=== PATIENT | female | born 1965 | race Caucasian/White ===

== ENCOUNTER → 2017-04-21 | Outpatient (CLI) | payer MEDICARE, MEDICAID ==
[~2017-04-21] MED LIST: ALBU17AE3 IH; ALPR1TAB2 PO; AMT50T PO; ARIP10TA2 PO; ASPI-587 PO; ATEN50TA PO; BSP10T PO; CALC-758 PO; CITA-105 PO; CITA40TA19 PO; CLAR-19 PO; CODE120S3 PO; CYCL10TA9 PO; HYDR-1435 PO; HYDR-2890 PO; HYDR-3816 PO; HYOS0.1216 PO; IBP600T1 PO; LEVO500T69 PO; METR500T PO; MS15TCR PO; NAPR500T PO; NF-ESOM40C PO; OMG1KC PO; POLY119P PO; POTA10TA36 PO; PRD20T PO; PRED10TA PO; PRED20TA PO; PRM25T PO; RANI150C11 PO; RT-ALBUINH IH; SIMV40TA2 PO; TRAZ150T42 PO; ZLP10T PO
[2017-04-24 22:38] LABS: DACLATASVIR RESISTANCE NOT PREDICTED; ELBASVIR RESISTANCE NOT PREDICTED; LEDIPASVIR RESISTANCE NOT PREDICTED; OMBITASVIR RESISTANCE NOT PREDICTED
[2017-04-26 07:29] LABS: VELPATASVIR RESISTANCE NOT PREDICTED
== END ==
LOC: LAB 14:53
PROVIDERS: ATTEND Pediatrics
DX: B18.2 Chronic viral hepatitis C (principal)
CPT/HCPCS: 36415; 87902

== ENCOUNTER 2021-01-31 12:05 | Emergency (ER) | payer MEDICARE, MEDICAID ==
[~2021-01-31] VITALS: Ht 160 cm; Wt 46.3 kg
[~2021-01-31 12:05] MED LIST changes: +HYDR-34 PO; -HYDR-3816 PO; +NAPR-1071 PO; -NAPR500T PO
[2021-01-31] MEDS ORDERED: KETOROLAC 30 MG/ML VIAL IM ONE (12:30)
[2021-01-31] MEDS ORDERED: ORPHENADRINE 60 MG/2 ML (NORFLEX) AMP (ED ONLY) IM ONE (12:30)
[2021-01-31] MEDS ORDERED: CYCL10TA9 PO (13:10)
--- NOTE | 2021-01-31 13:10 | ED Neck-Back Pain/Injury ---
General Chief Complaint: Head/Cervical Problems Stated Complaint: NECK PAIN Nursing Triage Note: PT C/O PAIN BETWEEN SHOULDER BLADES, RADIATES TO NECK AREA. Nursing Sepsis Screen: No Definite Risk Source of Information: Patient Exam Limitations: No Limitations History of Present Illness Date Seen by Provider: Jan 31, 2021 Time Seen by Provider: 12:20 Initial Comments This a 55-year-old woman presents to the emergency room with complaints of pain in the upper back between the scapula bones. This started a couple weeks ago on the right and is now more intense on the left. She does not identify any trauma. She has tried Tylenol without significant relief. She has a history of C-spine surgery with complications. She has chronic numbness in the left upper extremity that is unchanged. There are muscle spasms noted in the painful area on exam. She has some relief with massage. Allergies and Home Medications Allergies Coded Allergies: No Known Drug Allergies (Unverified , 03/13/14) Home Medications Albuterol Sulfate 8.5 Gm Hfa.aer.ad, 2 PUFF IH Q4H PRN for WHEEZING Prescribed by: THELMA JONES on 01/09/16 0548 Cyclobenzaprine HCl 10 Mg Tablet, 10 MG PO Q8H PRN for SPASMS Prescribed by: ASYA MARES on 01/31/21 1310 Hydrocodone Bit/Acetaminophen 1 Each Tablet, 1 EACH PO Q6H Prescribed by: THELMA JONES on 08/15/15 1141 Naproxen 500 Mg Tablet, 500 MG PO BID Prescribed by: LIZZIE CALDWELL on 11/14/15 1453 Prednisone 20 Mg Tab, 40 MG PO DAILY Prescribed by: THELMA JONES on 01/09/16 0548 Patient Home Medication List Home Medication List Reviewed: Yes Review of Systems Constitutional: no symptoms reported EENTM: no symptoms reported Respiratory: no symptoms reported Cardiovascular: no symptoms reported Gastrointestinal: no symptoms reported Genitourinary: no symptoms reported : No Musculoskeletal: see HPI Skin: no symptoms reported Psychiatric/Neurological: See HPI Past Avchxtw-Yyjqir-Psimmb Hx Past Med/Social Hx: Reviewed and Corrections made Patient Social History Alcohol Use: Denies Use Smoking Status: Current Everyday Smoker Type Used: Cigarettes Recent Infectious Disease Expo: No Immunizations Up To Date Date of Pneumonia Vaccine: Jul 24, 2011 Seasonal Allergies Seasonal Allergies: No Past Medical History Surgeries: Yes (NECK, EXPLORATORY LAP, HEMORRHOID) Hysterectomy Respiratory: Yes COPD, Emphysema Cardiac: Yes (TACHYCARDIA, CHF) Neurological: Yes (Chronic numbness of the left arm) : No 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 oz. 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 Norm as Tested Skin: Normal Color, Warm/Dry Progress/Results/Core Measures Results/Orders My Orders Orders - ASYA MCKEON MD Ketorolac Injection (Toradol Injection) (01/31/21 12:30) Orphenadrine Inj (Ed Only) (Norflex Inje (01/31/21 12:30) Medications Given in ED Current Medications Medications Dose Ordered Sig/Grayson Route Start Time Stop Time Status Last Admin Dose Admin Ketorolac Tromethamine 30 mg ONCE ONCE IM 01/31/21 12:30 01/31/21 12:31 DC 01/31/21 12:43 30 MG Orphenadrine Citrate 60 mg ONCE ONCE IM 01/31/21 12:30 01/31/21 12:31 DC 01/31/21 12:43 60 MG Vital Signs/I&O 01/31/21 01/31/21 12:16 13:14 Temp 36.7 36.7 Pulse 105 100 Resp 17 17 B/P (MAP) 188/84 (118) 175/80 (118) Pulse Ox 98 O2 Delivery Room Air Blood Pressure Mean: 118 Progress Progress Note : Progress Note Patient was treated with massage and soft tissue release assisted by Emilee Bolton, MS 4. Toradol and Norflex injections were also administered. Patient noted significant relief although she still appeared uncomfortable. She was offered imaging of the spine given her history of spine problems and paresthesias in the left arm. She declines at this time and will pursue outpatient follow-up. She was feeling well enough to return home. See discharge instructions. She intends to follow-up with her PCP in [place]. Departure Impression Primary Impression: Upper back pain Additional Impression: Muscle spasm of back Disposition: 01 HOME, SELF-CARE Condition: Improved Departure-Patient Inst. Decision time for Depature: 13:08 Referrals: NO,LOCAL PHYSICIAN (PCP/Family) Primary Care Physician Patient Instructions: Muscle Spasm ED, Upper Back Pain Add. Discharge Instructions: For primary pain control you may take ibuprofen up to 400 mg every 6 hours as needed and/or Tylenol (acetaminophen) up to 650 mg every 6 hours. Use cyclobenzaprine as prescribed for muscle spasms. Gentle heat and massage may help relax spasming muscles as well. Return to care if you have worsening symptoms including escalating pain or worsening numbness or weakness in your arm. If you do not rapidly improve, you may need further evaluation of your spine with CT or MRI. Please follow-up with your primary care provider soon as possible. Call with questions or concerns. All discharge instructions reviewed with patient and/or family. Voiced u nderstanding. Scripts Cyclobenzaprine HCl (Cyclobenzaprine HCl) 10 Mg Tablet 10 MG PO Q8H PRN for SPASMS, #15 TAB 0 Refills Prov: ASYA MCKEON MD 01/31/21 ASYA MCKEON MD Jan 31, 2021 13:10
[2021-01-31 13:14] VITALS: BP 175/80
== END 2021-01-31 13:13 | disposition home or self-care (01) ==
LOC: EDUNIT# 12:05 → ER 12:07
DX: M62.830 Muscle spasm of back (principal); J44.9 Chronic obstructive pulmonary disease, unspecified; E11.9 Type 2 diabetes mellitus without complications; I50.9 Heart failure, unspecified; G89.29 Other chronic pain; F17.210 Nicotine dependence, cigarettes, uncomplicated; Z79.52 Long term (current) use of systemic steroids; Z79.891 Long term (current) use of opiate analgesic
CPT/HCPCS: 99284

== ENCOUNTER 2021-03-21 06:45 | Emergency (ER) | payer MEDICARE, MEDICAID ==
[~2021-03-21] VITALS: Ht 160 cm; Wt 47.6 kg
[2021-03-21 07:04] VITALS: BP 171/77
--- NOTE | 2021-03-21 07:24 | ED Cough/URI ---
General Chief Complaint: Respiratory Problems Stated Complaint: COUGH,SOB,HAND PAIN Source: patient Exam Limitations: no limitations History of Present Illness Date Seen by Provider: Mar 21, 2021 Time Seen by Provider: 07:08 Initial Comments Patient is a 55-year-old female who presents to the emergency department today with a chief complaint of cough, headache, diarrhea. Patient states her symptoms have started over the past 2 to 3 days. Patient states that she feels short of breath. She states that her diarrhea started yesterday and her headache started last night. She states that she is having some bilateral hand pain that she relates to "arthritis". Patient states that she takes 600 mg of ibuprofen every 6 hours but that has not really helped her hand pain. Patient states that she was exposed to a friend 3 or 4 days ago who tested positive for coronavirus. Patient is concerned she might have contracted it. She denies any loss of taste or smell. No sore throat runny nose. She complains of chest congestion. Her cough is nonproductive. Patient is a smoker. She uses inhalers. No other GI or complaints. No fevers or chills. All other review of systems reviewed and negative except as stated above. Timing/Duration: getting worse Severity/Quality: moderate, dry cough Prior Episodes/Possible Cause: occasional episodes Modifying Factors: Improves With Albuterol Inhaler Associated Symptoms: headache, shortness of breath, wheezing, other (Diarrhea) Allergies and Home Medications Allergies Coded Allergies: No Known Drug Allergies (Unverified , 03/13/14) Home Medications Albuterol Sulfate 8.5 Gm Hfa.aer.ad, 2 PUFF IH Q4H PRN for WHEEZING Prescribed by: THELMA JONES on 01/09/16 0548 Cyclobenzaprine HCl 10 Mg Tablet, 10 MG PO Q8H PRN for SPASMS Prescribed by: ASYA MARES on 01/31/21 1310 Doxycycline Hyclate 100 Mg Tablet, 100 MG PO BID Prescribed by: GEE ROMERO on 03/21/21 0805 Hydrocodone Bit/Acetaminophen 1 Each Tablet, 1 EACH PO Q6H Prescribed by: THELMA JONES on 08/15/15 1141 Naproxen 500 Mg Tablet, 500 MG PO BID Prescribed by: LIZZIE CALDWELL on 11/14/15 1453 Prednisone 20 Mg Tab, 40 MG PO DAILY Prescribed by: THELMA JONES on 01/09/16 0548 Patient Home Medication List Home Medication List Reviewed: Yes Review of Systems Review of Systems Constitutional: see HPI EENTM: no symptoms reported Respiratory: cough, short of breath Cardiovascular: no symptoms reported Gastrointestinal: diarrhea Genitourinary: no symptoms reported : No Musculoskeletal: joint pain (Bilateral hands) Skin: no symptoms reported All Other Systems Reviewed Negative Unless Noted: Yes Past Emiphxc-Xwerlm-Hjryuz Hx Patient Social History Type Used: Cigarettes Immunizations Up To Date Date of Pneumonia Vaccine: Jul 24, 2011 Seasonal Allergies Seasonal Allergies: No Past Medical History Surgeries: Yes (NECK, EXPLORATORY LAP, HEMORRHOID) Hysterectomy Respiratory: Yes COPD, Emphysema Cardiac: Yes (TACHYCARDIA, CHF) Neurological: Yes (Chronic numbness of the left arm) 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 oz. 48.825202lj; 18.00 BMI Method: General Appearance: WD/WN, no apparent distress Eyes: Bilateral Eye Normal Inspection, Bilateral Eye PERRL, Bilateral Eye EOMI HEENT: PERRL/EOMI, pharynx normal Neck: supple, lymphadenopathy (R) Respiratory: lungs clear, normal breath sounds, no respiratory distress, no accessory muscle use Cardiovascular: regular rate, rhythm Gastrointestinal: non tender, soft Extremities: normal inspection, no pedal edema, no calf tenderness Neurologic/Psychiatric: alert, normal mood/affect, oriented x 3 Skin: normal color, warm/dry Progress/Results/Core Measures Suspected Sepsis SIRS Temperature: Pulse: Respiratory Rate: Blood Pressure / Mean: Results/Orders Lab Results Laboratory Tests Test 03/21/21 07:24 Range/Units SARS-CoV-2 RNA (RT-PCR) Not Detected Not Detecte My Orders Orders - GEE ROMERO MD Covid 19 Inhouse Test (03/21/21 07:20) Naproxen Tablet (Naprosyn Tablet) (03/21/21 07:30) Medications Given in ED Current Medications Medications Dose Ordered Sig/Grayson Route Start Time Stop Time Status Last Admin Dose Admin Naproxen 500 mg ONCE ONCE PO 03/21/21 07:30 03/21/21 07:31 DC 03/21/21 07:29 500 MG Vital Signs/I&O 03/21/21 07:04 Temp 35.8 Pulse 94 Resp 17 B/P (MAP) 171/77 (108) O2 Delivery Room Air Capillary Refill : Counseling-Symptomatic: 3-10 Minutes Discussed Options Including: Nicotine Patch, Nicotine Gum Follow-up with PCP to: Discuss Further Options Departure Impression Primary Impression: Bronchitis Additional Impression: Tobacco dependence Disposition: 01 HOME, SELF-CARE Condition: Stable Departure-Patient Inst. Decision time for Depature: 08:04 Referrals: LUNA CORDOVA (PCP/Family) Primary Care Physician Patient Instructions: Acute Bronchitis Add. Discharge Instructions: Continue to use your inhalers every 4-6 hours as needed. Take the antibiotics twice a day for the next 10 days to help with your cough/bronchitis. Please try and stop smoking. Follow-up with your primary care physician as needed. Return to the emergency room for any new, concerning or emergent symptoms. Scripts Benzonatate (TESSALON PERLES) 100 Mg Capsule 200 MG PO TID PRN for cough, #20 CAP Prov: GEE ROMERO MD 03/21/21 Doxycycline Hyclate (Doxycycline Hyclate) 100 Mg Tablet 100 MG PO BID, #20 TAB 0 Refills Prov: GEE ROMERO MD 03/21/21 GEE ROMERO MD Mar 21, 2021 07:23
[2021-03-21] MEDS ORDERED: NAPROXEN 250 MG (NAPROSYN) TABLET PO ONE (07:30)
[2021-03-21] MEDS ORDERED: DOXY100T2 PO (08:05)
[2021-03-21] MEDS ORDERED: BENZ100C18 PO (08:08)
== END 2021-03-21 08:11 | disposition home or self-care (01) ==
LOC: EDUNIT# 06:45 → ER 06:50
DX: J43.9 Emphysema, unspecified (principal); R59.0 Localized enlarged lymph nodes; E11.9 Type 2 diabetes mellitus without complications; I50.9 Heart failure, unspecified; M79.7 Fibromyalgia; G89.29 Other chronic pain; M54.9 Dorsalgia, unspecified; F17.210 Nicotine dependence, cigarettes, uncomplicated; Z71.6 Tobacco abuse counseling; Z79.891 Long term (current) use of opiate analgesic; Z79.1 Long term (current) use of non-steroidal anti-inflammatories (NSAID); Z79.52 Long term (current) use of systemic steroids; Z79.899 Other long term (current) drug therapy
CPT/HCPCS: 87636; 99283

== ENCOUNTER 2021-11-01 23:42 | Emergency (ER) | payer MEDICAID, MEDICARE ==
[~2021-11-01 23:42] MED LIST changes: +BENZ100C18 PO; +CYCL10TA25 PO; +DOXY100T2 PO
[2021-11-01] MEDS ORDERED: RT-ALBUTEROL/IPRATROPIUM 3 ML (DUONEB) VIAL INH STA (23:55)
[2021-11-01] MEDS ORDERED: KETOROLAC 30 MG/ML VIAL IVP STA (23:55)
[2021-11-01 23:57] LABS: BASOPHILS % (AUTO) 1 % (0-10); EOSINOPHILS % (AUTO) 3 % (0-10); HEMATOCRIT 43 % (35-52); HEMOGLOBIN 14.8 g/dL (11.5-16.0); LYMPHOCYTES % (AUTO) 34 % (12-44); MEAN CORPUSCULAR HEMOGLOBIN 29 pg (25-34); MEAN CORPUSCULAR HGB CONC 34 g/dL (32-36); MEAN CORPUSCULAR VOLUME 85 fL (80-99); MEAN PLATELET VOLUME 9.6 fL (9.0-12.2); MONOCYTES % (AUTO) 10 % (0-12); NEUTROPHILS % (AUTO) 52 % (42-75); PLATELET COUNT 317 10^3/uL (130-400); WHITE BLOOD COUNT 8.2 10^3/uL (4.3-11.0)
[2021-11-01 23:58] LABS: BASOPHILS # (AUTO) 0.1 10^3/uL (0.0-0.1); EOSINOPHILS # (AUTO) 0.3 10^3/uL (0.0-0.3); LYMPHOCYTES # (AUTO) 2.8 X 10^3 (1.0-4.0); MONOCYTES # (AUTO) 0.8 X 10^3 (0.0-1.0); NEUTROPHILS # (AUTO) 4.2 X 10^3 (1.8-7.8)
--- NOTE | 2021-11-02 00:04 | ED Chest Pain ---
General Chief Complaint: Chest Pain Stated Complaint: CHEST PAIN Source: patient, EMS History of Present Illness Date Seen by Provider: Nov 01, 2021 Time Seen by Provider: 23:42 Initial Comments 56-year-old female presenting with complaints of chest tightness or pressure to the upper part of her chest. It seemed to start more on the left side and now is on the right side now that she has arrived in the ED. She has chronic shortness of breath from COPD. She denies having nausea, fever, chills, dizziness, lightheadedness. She has not had pain like this previously. She had been switching out mattresses earlier today as well as when the pain started she was holding a flatscreen TV for her while he was unscrewing components from the back of it. She did take some tylenol earlier in the evening for aches and pains. EMS gave her aspirin and ntg. 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 NTG SL CONTRACTING ANALYST: Yes Associated Symptoms: No abdominal pain, No back pain, No diaphoresis, No dizziness, No edema, No fatigue, No fever/chills, No headache, No heartburn, No nausea/vomiting, No rash; shortness of breath (chronic from COPD); No swelling/lump in chest, No syncope, No weakness Allergies and Home Medications Allergies Coded Allergies: No Known Drug Allergies (Unverified , 03/13/14) Patient Home Medication List Home Medication List Reviewed: Yes Albuterol Sulfate (Proair Hfa) 8.5 Gm Hfa.aer.ad, 2 PUFF IH Q4H PRN for WHEEZING Prescribed by: THELMA JONES on 01/09/16 0548 Benzonatate (Tessalon Perles) 100 Mg Capsule, 200 MG PO TID PRN for cough Prescribed by: GEE ROMERO on 03/21/21 0808 Cyclobenzaprine HCl (Cyclobenzaprine HCl) 10 Mg Tablet, 10 MG PO Q8H PRN for SPASMS Prescribed by: ASYA MARES on 01/31/21 1310 Doxycycline Hyclate (Doxycycline Hyclate) 100 Mg Tablet, 100 MG PO BID Prescribed by: GEE ROMERO on 03/21/21 0805 Hydrocodone Bit/Acetaminophen (Lortab 7.5 Mg Tablet) 1 Each Tablet, 1 EACH PO Q6H Prescribed by: THELMA JONES on 08/15/15 1141 Naproxen (Naprosyn) 500 Mg Tablet, 500 MG PO BID Prescribed by: LIZZIE CALDWELL on 11/14/15 1453 Prednisone (Prednisone) 20 Mg Tab, 40 MG PO DAILY Prescribed by: THELMA JONES on 01/09/16 0548 Review of Systems Review of Systems Constitutional: No chills, No fever EENTM: No Symptoms Reported Respiratory: See HPI Cardiovascular: See HPI Gastrointestinal: No Symptoms Reported Genitourinary: No Symptoms Reported Musculoskeletal: see HPI Skin: No rash Psychiatric/Neurological: Denies Headache, Denies Numbness, Denies Paresthesia, Denies Tingling, Denies Tremors Past Cmsdwly-Jtxzeb-Dypcpa Hx Patient Social History Tobacco Use?: Yes Seasonal Allergies Seasonal Allergies: No Past Medical History Surgery/Hospitalization HX: COPD, CHF Surgeries: Yes (NECK, EXPLORATORY LAP, HEMORRHOID) Hysterectomy Respiratory: Yes COPD, Emphysema Cardiac: Yes (TACHYCARDIA, CHF) Neurological: Yes (Chronic numbness of the left arm) 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 oz. 48.434768jz; 18.00 BMI Method: General Appearance: No Apparent Distress HEENT: PERRL/EOMI, Pharynx Normal, Moist Mucous Membranes Neck: Full Range of Motion, Normal Inspection, Non Tender, Supple Respiratory: Chest Non Tender, Lungs Clear, Normal Breath Sounds, No Accessory Muscle Use, No Respiratory Distress Cardiovascular: Regular Rate, Rhythm, Normal Peripheral Pulses Gastrointestinal: Normal Bowel Sounds, No Pulsatile Mass, Non Tender, Soft Rectal: Deferred Extremity: Normal Capillary Refill, Normal Inspection, No Pedal Edema Neurologic/Psychiatric: Alert, Oriented x3, red leader II-XII Norm as Tested Skin: Normal Color, Warm/Dry Progress/Results/Core Measures Results/Orders Lab Results Laboratory Tests Test 11/01/21 23:53 11/02/21 01:49 Range/Units White Blood Count 8.2 4.3-11.0 10^3/uL Red Blood Count 5.11 3.80-5.11 10^6/uL Hemoglobin 14.8 11.5-16.0 g/dL Hematocrit 43 35-52 % Mean Corpuscular Volume 85 80-99 fL Mean Corpuscular Hemoglobin 29 25-34 pg Mean Corpuscular Hemoglobin Concent 34 32-36 g/dL Red Cell Distribution Width 13.6 10.0-14.5 % Platelet Count 317 130-400 10^3/uL Mean Platelet Volume 9.6 9.0-12.2 fL Immature Granulocyte % (Auto) 0 % Neutrophils (%) (Auto) 52 42-75 % Lymphocytes (%) (Auto) 34 12-44 % Monocytes (%) (Auto) 10 0-12 % Eosinophils (%) (Auto) 3 0-10 % Basophils (%) (Auto) 1 0-10 % Neutrophils # (Auto) 4.2 1.8-7.8 X 10^3 Lymphocytes # (Auto) 2.8 1.0-4.0 X 10^3 Monocytes # (Auto) 0.8 0.0-1.0 X 10^3 Eosinophils # (Auto) 0.3 0.0-0.3 10^3/uL Basophils # (Auto) 0.1 0.0-0.1 10^3/uL Immature Granulocyte # (Auto) 0.0 0.0-0.1 10^3/uL Prothrombin Time 12.3 12.2-14.7 SEC INR Comment 0.9 0.8-1.4 Activated Partial Thromboplast Time 27 24-35 SEC Sodium Level 137 135-145 MMOL/L Potassium Level 3.8 3.6-5.0 MMOL/L Chloride Level 100 98-107 MMOL/L Carbon Dioxide Level 26 21-32 MMOL/L Anion Gap 11 5-14 MMOL/L Blood Urea Nitrogen 14 7-18 MG/DL Creatinine 0.59 L 0.60-1.30 MG/DL Estimat Glomerular Filtration Rate 104 BUN/Creatinine Ratio 24 Glucose Level 99 70-105 MG/DL Calcium Level 9.4 8.5-10.1 MG/DL Corrected Calcium 9.2 8.5-10.1 MG/DL Magnesium Level 1.9 1.6-2.4 MG/DL Total Bilirubin 0.2 0.1-1.0 MG/DL Aspartate Amino Transf (AST/SGOT) 30 5-34 U/L Alanine Aminotransferase (ALT/SGPT) 31 0-55 U/L Alkaline Phosphatase 118 40-136 U/L Troponin I < 0.30 < 0.30 <0.30 NG/ML Pro-B-Type Natriuretic Peptide 72.0 <75.0 PG/ML Total Protein 7.7 6.4-8.2 GM/DL Albumin 4.2 3.2-4.5 GM/DL Lipase 33 8-78 U/L My Orders Orders - ENYARTZULEIMA MD Cbc With Automated Diff (11/01/21 23:54) Magnesium (11/01/21 23:54) Chest 1 View Ap/Pa Only (11/01/21 23:54) Ekg Tracing (11/01/21 23:54) Comprehensive Metabolic Panel (11/01/21 23:54) Protime With Inr (11/01/21 23:54) Partial Thromboplastin Time (11/01/21 23:54) O2 (11/01/21 23:54) Monitor-Rhythm Ecg Trace Only (11/01/21 23:54) Ed Iv/Invasive Line Start (11/01/21 23:54) Lipase (11/01/21 23:54) Troponin I Fs (11/01/21 23:54) Probnp Fs (11/01/21 23:54) Albuterol/Ipra Inhalation Soln (Duoneb I (11/01/21 23:55) Svn Small Volume Nebulizer (11/01/21 23:55) Ketorolac Injection (Toradol Injection) (11/01/21 23:55) Troponin I Fs (11/02/21 02:00) Vital Signs/I&O 11/01/21 11/02/21 23:45 02:24 Pulse 88 96 Resp 20 18 B/P (MAP) 152/93 (112) 145/82 Pulse Ox 96 94 O2 Delivery Nasal Cannula Room Air O2 Flow Rate 1.00 1.00 1.00 Progress Progress Note #1: Progress Note Obtain electrocardiogram as well as labs with cardiac enzymes. Chest x-ray to look for structural abnormalities. Given DuoNeb breathing treatment to help with the tightness in her chest. Toradol to try and help her if there is muscle pain and inflammation with her chest. Progress Note #2: Progress Note Initial labs are stable without acute significant malady. Her initial troponin is negative. Chest x-ray does not show any acute process. Her initial electrocardiogram is also stable without signs of ischemia or acute STEMI. Updated patient and she reports that her pain resolved after getting the Toradol and breathing treatment. Will obtain a second enzyme in 2 hours to ensure that it is not increasing for her troponin and if its still 0 and she has no recurrent symptoms or change in condition we will plan on discharging to home. Progress Note #3: Progress Note Repeat troponin is still 0 so will discharge patient to home. Counseled that the chest pain may have in part related to muscle strain from moving mattresses and furniture in the house. Counseled to try NSAIDs and check back with primary care provider for continued concerns. Initial ECG Impression Date: Nov 01, 2021 Initial ECG Impression Time: 23:40 Initial ECG Rate: 88 Initial ECG Rhythm: Normal Sinus Initial ECG Comparisson: Unchanged Comment Normal sinus rhythm with heart rate of 88 bpm. MT interval [address] elevation. QT interval 373 ms with a QTc interval 452 ms. Compared to prior tracings from 2015 appears similar. Diagnostic Imaging Diagonstic Imaging: Xray Plain Films/CT/US/NM/MRI: chest Comments On my review of her 1 view chest x-ray appears stable from prior imaging with no acute infiltrate or acute process Reviewed: Reviewed by Me Departure Impression Primary Impression: Atypical chest pain Disposition: 01 HOME, SELF-CARE Condition: Improved Departure-Patient Inst. Decision time for Depature: 02:19 Referrals: LUNA CORDOVA (PCP/Family) Primary Care Physician Patient Instructions: Chest Pain, Adult ED, Muscle Strain ED Add. Discharge Instructions: Your heart tests were all negative for any acute heart attack or heart failure. The pain may have been more related to muscle strain and overuse with moving the mattresses and things around in the house. There is no sign of pneumonia or infection with your test either. Continue all your regular medications. Follow-up with your regular provider for continued concerns. All discharge instructions reviewed with patient and/or family. Voiced understanding. ZULEIMA SMITH MD Nov 02, 2021 00:04
[2021-11-02 00:09] LABS: INR 0.9 (0.8-1.4); PROTHROMBIN TIME PATIENT 12.3 SEC (12.2-14.7)
[2021-11-02 00:16] LABS: ALBUMIN 4.2 GM/DL (3.2-4.5); BILIRUBIN,TOTAL 0.2 MG/DL (0.1-1.0); CALCIUM 9.4 MG/DL (8.5-10.1); CREATININE SERUM 0.59 MG/DL (0.60-1.30); MAGNESIUM 1.9 MG/DL (1.6-2.4); POTASSIUM 3.8 MMOL/L (3.6-5.0); TOTAL PROTEIN 7.7 GM/DL (6.4-8.2)
[2021-11-02 02:24] VITALS: BP 145/82
--- NOTE | 2021-11-02 07:31 | Diagnostic Imaging Report ---
CHEST 1 VIEW AP/PA ONLY Indication: Chest pressure Comparison: 03/13/2014 Findings: No focal airspace disease in the visualized lungs. Please note that the posterior lower lobes are poorly evaluated by portable radiography. No pleural effusion or pneumothorax. Normal cardiomediastinal silhouette. ACDF in the lower cervical spine. Impression: 1. No acute cardiopulmonary process by portable radiography. Dictated by: Dictated on workstation # [id number]
== END 2021-11-02 02:31 | disposition home or self-care (01) ==
LOC: EDUNIT# 23:42 → ER FS 23:43
DX: R07.89 Other chest pain (principal); J43.9 Emphysema, unspecified; E11.9 Type 2 diabetes mellitus without complications; I50.9 Heart failure, unspecified
CPT/HCPCS: 36415; 71045; 80053; 83690; 83735; 83880; 84484; 85025; 85610; 85730; 93005; 93041; 96374

== ENCOUNTER 2021-12-22 09:58 | Emergency (ER) | payer MEDICAID ==
[~2021-12-22] VITALS: Ht 160 cm; Wt 48.1 kg
[2021-12-22 09:58] VITALS: BP 149/74
--- NOTE | 2021-12-22 10:06 | ED Respiratory ---
General Chief Complaint: Respiratory Problems History of Present Illness Date Seen by Provider: Dec 22, 2021 Time Seen by Provider: 10:05 Initial Comments 56 yr F with PMH of Emphysema/ COPD/ Hepatitis C/ CHF/ DM/ HTN, is brought in by EMS with c/o SOB and feeling unwell for the past 2 months. Pt was COVID positive on November 26. Pt started having SOB when lying down, last night. She has NOT taken her inhalers at all. Denies fever, chills, chest pain, abdominal pain, diarrhea, dysuria, leg pain or swelling. No known sick contacts. > Allergies and Home Medications Allergies Coded Allergies: No Known Drug Allergies (Unverified , 03/13/14) Patient Home Medication List Home Medication List Reviewed: Yes Albuterol Sulfate (Proair Hfa) 8.5 Gm Hfa.aer.ad, 2 PUFF IH Q4H PRN for WHEEZING Prescribed by: THELMA JONES on 01/09/16 0548 Benzonatate (Tessalon Perles) 100 Mg Capsule, 200 MG PO TID PRN for cough Prescribed by: GEE ROMERO on 03/21/21 0808 Cyclobenzaprine HCl (Cyclobenzaprine HCl) 10 Mg Tablet, 10 MG PO Q8H PRN for SPASMS Prescribed by: ASYA MARES on 01/31/21 1310 Doxycycline Hyclate (Doxycycline Hyclate) 100 Mg Tablet, 100 MG PO BID Prescribed by: GEE ROMERO on 03/21/21 0805 Hydrocodone Bit/Acetaminophen (Lortab 7.5 Mg Tablet) 1 Each Tablet, 1 EACH PO Q6H Prescribed by: THELMA JONES on 08/15/15 1141 Naproxen (Naprosyn) 500 Mg Tablet, 500 MG PO BID Prescribed by: LIZZIE CALDWELL on 11/14/15 1453 Prednisone (Prednisone) 20 Mg Tab, 40 MG PO DAILY Prescribed by: THELMA JONES on 01/09/16 0548 Review of Systems Review of Systems Constitutional: no symptoms reported EENTM: no symptoms reported Respiratory: short of breath Cardiovascular: no symptoms reported Gastrointestinal: no symptoms reported Genitourinary: no symptoms reported : No Musculoskeletal: no symptoms reported Skin: no symptoms reported Psychiatric/Neurological: No Symptoms Reported Hematologic/Lymphatic: No Symptoms Reported Immunological/Allergic: no symptoms reported Past Xwoxmfp-Lbghto-Eidusf Hx Patient Social History Tobacco Use?: Yes Tobacco type used: Cigarettes Smoking Status: Current Everyday Smoker Seasonal Allergies Seasonal Allergies: No Past Medical History Surgery/Hospitalization HX: COPD, CHF Surgeries: Yes (NECK, EXPLORATORY LAP, HEMORRHOID) Hysterectomy Respiratory: Yes COPD, Emphysema Cardiac: Yes (TACHYCARDIA, CHF) Neurological: Yes (Chronic numbness of the left arm) 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 oz. 48.614516fq; 18.00 BMI Method: General Appearance: WD/WN, no apparent distress HEENT: PERRL/EOMI, normal ENT inspection Neck: non-tender, supple, normal inspection Respiratory: lungs clear, normal breath sounds Cardiovascular: regular rate, rhythm, no edema Gastrointestinal: normal bowel sounds, non tender, soft Extremities: normal range of motion Neurologic/Psychiatric: no motor/sensory deficits, alert, oriented x 3 Skin: normal color Lymphatic: no adenopathy Progress/Results/Core Measures Suspected Sepsis SIRS Temperature: Pulse: Respiratory Rate: Laboratory Tests 12/22/21 10:35: White Blood Count 9.0 Blood Pressure / Mean: Laboratory Tests 12/22/21 10:35: Creatinine 0.48L, Platelet Count 335, Total Bilirubin 0.4 Results/Orders Lab Results Laboratory Tests Test 12/22/21 10:35 Range/Units White Blood Count 9.0 4.3-11.0 10^3/uL Red Blood Count 4.34 3.80-5.11 10^6/uL Hemoglobin 12.4 11.5-16.0 g/dL Hematocrit 37 35-52 % Mean Corpuscular Volume 84 80-99 fL Mean Corpuscular Hemoglobin 29 25-34 pg Mean Corpuscular Hemoglobin Concent 34 32-36 g/dL Red Cell Distribution Width 13.2 10.0-14.5 % Platelet Count 335 130-400 10^3/uL Mean Platelet Volume 9.5 9.0-12.2 fL Immature Granulocyte % (Auto) 0 % Neutrophils (%) (Auto) 72 42-75 % Lymphocytes (%) (Auto) 17 12-44 % Monocytes (%) (Auto) 9 0-12 % Eosinophils (%) (Auto) 1 0-10 % Basophils (%) (Auto) 1 0-10 % Neutrophils # (Auto) 6.5 1.8-7.8 10^3/uL Lymphocytes # (Auto) 1.6 1.0-4.0 10^3/uL Monocytes # (Auto) 0.8 0.0-1.0 10^3/uL Eosinophils # (Auto) 0.1 0.0-0.3 10^3/uL Basophils # (Auto) 0.1 0.0-0.1 10^3/uL Immature Granulocyte # (Auto) 0.0 0.0-0.1 10^3/uL D-Dimer 0.57 H 0.00-0.49 UG/ML Sodium Level 140 135-145 MMOL/L Potassium Level 3.7 3.6-5.0 MMOL/L Chloride Level 104 98-107 MMOL/L Carbon Dioxide Level 26 21-32 MMOL/L Anion Gap 10 5-14 MMOL/L Blood Urea Nitrogen 17 7-18 MG/DL Creatinine 0.48 L 0.60-1.30 MG/DL Estimat Glomerular Filtration Rate 110 BUN/Creatinine Ratio 35 Glucose Level 91 70-105 MG/DL Calcium Level 9.0 8.5-10.1 MG/DL Corrected Calcium 9.1 8.5-10.1 MG/DL Magnesium Level 2.1 1.6-2.4 MG/DL Total Bilirubin 0.4 0.1-1.0 MG/DL Aspartate Amino Transf (AST/SGOT) 19 5-34 U/L Alanine Aminotransferase (ALT/SGPT) 19 0-55 U/L Alkaline Phosphatase 101 40-136 U/L Troponin I < 0.30 <0.30 NG/ML Total Protein 7.3 6.4-8.2 GM/DL Albumin 3.9 3.2-4.5 GM/DL My [facility] Orders - LATASHA CASAREZ MD Cbc With Automated Diff (12/22/21 10:10) Comprehensive Metabolic Panel (12/22/21 10:10) Albuterol/Ipra Inhalation Soln (Duoneb I (12/22/21 10:15) Fibrin Degradation Products (12/22/21 10:10) Magnesium (12/22/21 10:10) Chest Pa/Lat (2 View) (12/22/21 10:10) Ekg Tracing (12/22/21 10:10) O2 (12/22/21 10:10) Ed Iv/Invasive Line Start (12/22/21 10:10) Monitor-Rhythm Ecg Trace Only (12/22/21 10:10) Svn Small Volume Nebulizer (12/22/21 10:10) Troponin I Fs (12/22/21 10:11) Procalcitonin (Pct) (12/22/21 10:11) Methylprednisolone Sod Succ (Solu-Medrol (12/22/21 11:00) Methylprednisolone Sod Succ (Solu-Medrol (12/22/21 10:47) Medications Given in ED Current Medications Medications Dose Ordered Sig/[place] Route Start Time Stop Time Status Last Admin Dose Admin Albuterol/ Ipratropium 3 ml ONCE ONCE INH 12/22/21 10:15 12/22/21 10:49 DC 12/22/21 10:36 3 ML Vital Signs/I&O 12/22/21 12/22/21 09:58 09:58 Temp 36.5 Pulse 82 Resp 18 B/P (MAP) 149/74 (99) O2 Delivery Room Air Room Air Capillary Refill : Progress Note : Progress Note COPD & ELEVATED D-DIMER: - CXR: COPD - Labs unremarkable - UA / UDS: pt refused to give urine and urine cup was given to her, she left AMA. It was explained to the pt the benefits of a CTA chest to rule out a clot due to high D-dimer, but pt refused anyway and said she was leaving and left. - Duo neb x1 - Solumedrol iv STAT - D-dimer elevated, CTA chest ordered. Pt refused. - Explained in detail and advised to come back to ER for CTA chest if she changed her mind. ECG Initial ECG Impression Date: Dec 22, 2021 Initial ECG Impression Time: 10:30 Initial ECG Rhythm: Normal Sinus Initial ECG Intervals: Normal Initial ECG Impression: Normal Diagnostic Imaging Diagonstic Imaging: Xray Plain Films/CT/US/NM/MRI: chest Comments [facility], [place] NAME: [facility] REC#: [id number] PT STATUS: REG ER : 1965 PHYSICIAN: LATASHA CASAREZ MD ADMIT DATE: 12/22/21/ER FS Draft Date of Exam:12/22/21 CHEST PA/LAT (2 VIEW) INDICATION: Shortness of breath. PA and lateral chest obtained at 10:23 a.m. compared with 11/01/2021 FINDINGS: Heart and mediastinal silhouette are normal in appearance. There is hyperinflation. There is no focal infiltrate or pneumothorax or pleural fluid. There are symmetric densities overlying both lung bases which are likely nipple shadows. IMPRESSION: Hyperinflation compatible with COPD. No focal infiltrate or pleural fluid. Dictated on workstation # [id number] Dict: 12/22/21 1032 Trans: 12/22/21 1034 [id number] Interpreted by: IVAN WILSON MD Electronically signed by: Departure Impression Primary Impression: Elevated d-dimer Additional Impression: COPD (chronic obstructive pulmonary disease) Qualified Codes: J44.9 - Chronic obstructive pulmonary disease, unspecified Disposition: AGAINST MEDICAL ADVICE Condition: Stable Departure-Patient Inst. Referrals: LUNA CORDOVA (PCP/Family) Primary Care Physician Patient Instructions: Risk Factors for COPD, Incidental Findings LATASHA CASAREZ MD Dec 22, 2021 10:06
[2021-12-22] MEDS ORDERED: RT-ALBUTEROL/IPRATROPIUM 3 ML (DUONEB) VIAL INH ONE (10:15)
--- NOTE | 2021-12-22 10:34 | Diagnostic Imaging Report ---
INDICATION: Shortness of breath. PA and lateral chest obtained at 10:23 a.m. compared with 11/01/2021 FINDINGS: Heart and mediastinal silhouette are normal in appearance. There is hyperinflation. There is no focal infiltrate or pneumothorax or pleural fluid. There are symmetric densities overlying both lung bases which are likely nipple shadows. IMPRESSION: Hyperinflation compatible with COPD. No focal infiltrate or pleural fluid. Dictated by: Dictated on workstation # [id number]
[2021-12-22] MEDS ORDERED: methylPREDNISolone 125 MG (Solu-MEDROL) VIAL IV STA (10:47)
[2021-12-22 10:48] LABS: BASOPHILS # (AUTO) 0.1 10^3/uL (0.0-0.1); BASOPHILS % (AUTO) 1 % (0-10); EOSINOPHILS # (AUTO) 0.1 10^3/uL (0.0-0.3); EOSINOPHILS % (AUTO) 1 % (0-10); HEMATOCRIT 37 % (35-52); HEMOGLOBIN 12.4 g/dL (11.5-16.0); LYMPHOCYTES # (AUTO) 1.6 10^3/uL (1.0-4.0); LYMPHOCYTES % (AUTO) 17 % (12-44); MEAN CORPUSCULAR HEMOGLOBIN 29 pg (25-34); MEAN CORPUSCULAR HGB CONC 34 g/dL (32-36); MEAN CORPUSCULAR VOLUME 84 fL (80-99); MEAN PLATELET VOLUME 9.5 fL (9.0-12.2); MONOCYTES # (AUTO) 0.8 10^3/uL (0.0-1.0); MONOCYTES % (AUTO) 9 % (0-12); NEUTROPHILS # (AUTO) 6.5 10^3/uL (1.8-7.8); NEUTROPHILS % (AUTO) 72 % (42-75); PLATELET COUNT 335 10^3/uL (130-400)
[2021-12-22] MEDS ORDERED: methylPREDNISolone 125 MG (Solu-MEDROL) VIAL IVP ONE (11:00)
[2021-12-22 11:31] LABS: SODIUM 140 MMOL/L (135-145)
[2021-12-22 11:32] LABS: ALANINE AMINOTRANSFERASE 19 U/L (0-55); ALKALINE PHOSPHATASE 101 U/L (40-136); BILIRUBIN,TOTAL 0.4 MG/DL (0.1-1.0); BUN/CREATININE RATIO 35; CARBON DIOXIDE 26 MMOL/L (21-32); CHLORIDE 104 MMOL/L (98-107); CREATININE SERUM 0.48 MG/DL (0.60-1.30); GFR ESTIMATED 110; GLUCOSE 91 MG/DL (70-105); MAGNESIUM 2.1 MG/DL (1.6-2.4); POTASSIUM 3.7 MMOL/L (3.6-5.0); TOTAL PROTEIN 7.3 GM/DL (6.4-8.2)
[2021-12-22 11:33] LABS: ALBUMIN 3.9 GM/DL (3.2-4.5)
== END 2021-12-22 11:31 | disposition left against medical advice (07) ==
LOC: EDUNIT# 09:58 → ER FS 10:00
DX: J44.9 Chronic obstructive pulmonary disease, unspecified (principal); R79.1 Abnormal coagulation profile; F17.210 Nicotine dependence, cigarettes, uncomplicated; Z86.16 Personal history of COVID-19
CPT/HCPCS: 36415; 71046; 80053; 83735; 84145; 84484; 85025; 85379; 93005; 93041

== ENCOUNTER 2022-08-29 00:50 | Emergency (ER) | payer MEDICARE, MEDICAID ==
[~2022-08-29 00:50] MED LIST changes: +ALBU8.5H6 IH; -RT-ALBUINH IH
[2022-08-29 02:20] VITALS: BP 118/67
[2022-08-29 02:22] LABS: BILIRUBIN,URINE NEGATIVE (NEGATIVE); CLARITY,URINE CLEAR; COLOR,URINE YELLOW; GLUCOSE, URINE (UA) NEGATIVE (NEGATIVE); KETONES,URINE NEGATIVE (NEGATIVE); LEUKOCYTE ESTERASE ,URINE NEGATIVE (NEGATIVE); NITRITE,URINE NEGATIVE (NEGATIVE); PH,URINE 5.5 (5-9); PROTEIN,URINE NEGATIVE (NEGATIVE)
[2022-08-29 02:30] LABS: BACTERIA,URINE NEGATIVE /HPF; WBC,URINE RARE /HPF
--- NOTE | 2022-08-29 02:35 | ED General ---
General Chief Complaint: Abdominal/GI Problems Stated Complaint: NAUSEA Nursing Triage Note: PT ARRIVAL TO ER [facility]IA [facility] WITH COMPLAINT OF NAUSEA SINCE 2345 HOURS. PT DENIES VOMITING OR OTHER COMPLAINTS. Source of Information: Patient (VERY LIMITED HISTORIAN, GIVES INCONSISTENT STOR IES TO EMS, RN AND MYSELF. WANTING TO LEAVE AMA EVEN PRIOR TO MY ENTERING THE ROOM. ), Old Records (ALL PMH IS FROM OLD RECORDS) History of Present Illness Date Seen by Provider: Aug 29, 2022 Time Seen by Provider: 23:58 Initial Comments PT ARRIVES VIA EMS PT SENT TO WAITING ROOM, THERE WERE NO BEDS AVAILABLE IN ER AT THE TIME. PT WAS SOUND ASLEEP IN THE WAITING ROOM, PRIOR TO BEING TAKEN BACK TO EXAM ROOM. PT WALKED TO EXAM ROOM, TO BATHROOM AND BACK TO EXAM ROOM WITHOUT DIFFICULTY. PT STATES "I GOT HOME FROM WORK AND I WAS DIZZY AND I COULDN'T TALK RIGHT AND I COULDN'T SEE RIGHT AND I COULDN'T HEAR RIGHT AND THEN I STARTED VOMITING" "I'M FINE, I'M GOING HOME THIS OCCURRED AROUND 2345 TONIGHT. PT IS ON THE PHONE WITH SOMEONE TELLING THEM TO PICK HER UP SOON I WALK IN THE ROOM, SHE STATES SHE IS FINE AND SHE IS GOING HOME, AND SHE PROMPTLY LEFT THE ER, WITHOUT ANY DIFFICULTY WHATSOEVER. AMA PAPERS SIGNED. PT VOICES NO OTHER INFORMATION TO ME AND UNABLE TO EXAMINE PT. Allergies and Home Medications Allergies Coded Allergies: No Known Drug Allergies (Unverified , 03/13/14) Patient Home Medication List Home Medication List Reviewed: Yes Albuterol Sulfate (Ventolin Hfa) 8.5 Gm Hfa.aer.ad, 2 PUFF IH Q4H PRN for WHEEZING Prescribed by: THELMA JONES on 01/09/16 0548 Benzonatate (Tessalon Perles) 100 Mg Capsule, 200 MG PO TID PRN for cough Prescribed by: GEE ROMERO on 03/21/21 0808 Cyclobenzaprine HCl (Cyclobenzaprine HCl) 10 Mg Tablet, 10 MG PO Q8H PRN for SPASMS Prescribed by: ASYA MARES on 01/31/21 1310 Doxycycline Hyclate (Doxycycline Hyclate) 100 Mg Tablet, 100 MG PO BID Prescribed by: GEE ROMERO on 03/21/21 0805 Hydrocodone Bit/Acetaminophen (Lortab 7.5 Mg Tablet) 1 Each Tablet, 1 EACH PO Q6H Prescribed by: THELMA JONES on 08/15/15 1141 Naproxen (Naprosyn) 500 Mg Tablet, 500 MG PO BID Prescribed by: LIZZIE CALDWELL on 11/14/15 1453 Prednisone (Prednisone) 20 Mg Tab, 40 MG PO DAILY Prescribed by: THELMA JONES on 01/09/16 0548 Review of Systems Review of Systems Constitutional: other (PER HPI) Past Qqusuyp-Xfvxno-Jpaxpg Hx Patient Social History Tobacco Use?: Yes Tobacco type used: Cigarettes Smoking Status: Current Everyday Smoker Use of E-Cig and/or Vaping dev: No Substance use?: No Alcohol Use?: No Pt feels they are or have been: No Immunizations Up To Date Influenza Vaccine Up-to-Date: No; Not Current Seasonal Allergies Seasonal Allergies: No Past Medical History Surgery/Hospitalization HX: COPD, CHF Surgeries: Yes (NECK, EXPLORATORY LAP, HEMORRHOID) Hysterectomy Respiratory: Yes COPD, Emphysema Cardiac: Yes (TACHYCARDIA, CHF) Irregular Heartbeat Neurological: Yes (Chronic numbness of the left arm) 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 oz. 48.260622vl; 18.00 BMI Method: General Appearance: No Apparent Distress, WD/WN, Other (REEKS OF CIGARETTES; SPEECH IS VERY RAPID, AND PT IS TALKING ON THE PHONE WHEN I ENTER ROOM. SPEECH ) Neurologic/Psychiatric: Other (WALKS WITHOUT DIFFICULTY. APPEARS TO BE MOVING ALL EXTREMITIES EQUALLY. SPEECH IS NOT SLURRED. ) Progress/Results/Core Measures Suspected Sepsis SIRS Temperature: Pulse: 58 Respiratory Rate: 16 Blood Pressure 118 /67 Mean: 84 Results/Orders Lab Results Laboratory Tests Test 08/29/22 02:18 Range/Units Urine Color YELLOW Urine Clarity CLEAR Urine pH 5.5 5-9 Urine Specific [place] >=1.030 1.016-1.022 Urine Protein NEGATIVE NEGATIVE Urine Glucose (UA) NEGATIVE NEGATIVE Urine Ketones NEGATIVE NEGATIVE Urine Nitrite NEGATIVE NEGATIVE Urine Bilirubin NEGATIVE NEGATIVE Urine Urobilinogen 0.2 < = 1.0 MG/DL Urine Leukocyte Esterase NEGATIVE NEGATIVE Urine RBC (Auto) NEGATIVE NEGATIVE Urine RBC NONE /HPF Urine WBC RARE /HPF Urine Crystals NONE /LPF Urine Bacteria NEGATIVE /HPF Urine Casts NONE /LPF Urine Mucus LARGE H /LPF Urine Culture Indicated NO Urine Opiates Screen POSITIVE H NEGATIVE Urine Oxycodone Screen NEGATIVE NEGATIVE Urine Methadone Screen NEGATIVE NEGATIVE Urine Propoxyphene Screen NEGATIVE NEGATIVE Urine Barbiturates Screen NEGATIVE NEGATIVE Ur Tricyclic Antidepressants Screen NEGATIVE NEGATIVE Urine Phencyclidine Screen NEGATIVE NEGATIVE Urine Amphetamines Screen NEGATIVE NEGATIVE Urine Methamphetamines Screen NEGATIVE NEGATIVE Urine Benzodiazepines Screen NEGATIVE NEGATIVE Urine Cocaine Screen NEGATIVE NEGATIVE Urine Cannabinoids Screen NEGATIVE NEGATIVE My Orders Orders - ADELIA GARZA DO Drug Screen Stat (Urine) (08/29/22 02:15) Ua Culture If Indicated (08/29/22 02:15) Vital Signs/I&O 08/29/22 08/29/22 01:37 02:20 Temp 36.7 36.7 Pulse 58 58 Resp 16 16 B/P (MAP) 118/67 (84) 118/67 Pulse Ox 96 96 O2 Delivery Room Air Room Air Capillary Refill : Less Than 3 Seconds Blood Pressure Mean: 84 Departure Impression Primary Impression: Left against medical advice Disposition: 07 AGAINST MEDICAL ADVICE Condition: Against Medical Advice Departure-Patient Inst. Referrals: LUNA CORDOVA (PCP/Family) Primary Care Physician ADELIA GARZA DO Aug 29, 2022 02:35
[2022-08-29 02:38] LABS: AMPHETAMINE SCREEN, URINE NEGATIVE (NEGATIVE); BARBITURATE SCREEN URINE NEGATIVE (NEGATIVE); BENZODIAZEPINES SCREEN URINE NEGATIVE (NEGATIVE); CANNABINOID SCREEN, URINE NEGATIVE (NEGATIVE); COCAINE SCREEN URINE NEGATIVE (NEGATIVE); METHADONE STAT NEGATIVE (NEGATIVE); OPIATE SCREEN URINE POSITIVE (NEGATIVE); OXYCODONE STAT NEGATIVE (NEGATIVE); PROPOXYPHENE STAT NEGATIVE (NEGATIVE); TRICYCLIC ANTIDEPRESSANTS SCRE NEGATIVE (NEGATIVE)
== END 2022-08-29 02:20 | disposition left against medical advice (07) ==
LOC: EDUNIT# 00:50 → ER 00:50
DX: R42 Dizziness and giddiness (principal); F17.210 Nicotine dependence, cigarettes, uncomplicated; Z28.310 Unvaccinated for COVID-19
CPT/HCPCS: 80306; 81000; 99282